=== PATIENT | male | born 1960 | race Caucasian/White ===

== ENCOUNTER 2020-04-28 10:08 | Outpatient (REF) | payer MEDICAID, SELFPAY | END 2020-04-28 10:09 | disposition home or self-care (01) | LOC: HO.BBR 10:08 | PROVIDERS: PCP Internal Medicine; Visit Provider Internal Medicine Hematology | DX: D45 Polycythemia vera (principal) | CPT/HCPCS: 36415; 85018; 99195 ==

== ENCOUNTER 2020-05-30 10:41 | Outpatient (REF) | payer MEDICAID, SELFPAY | END 2020-05-30 10:42 | disposition home or self-care (01) | LOC: HO.BBR 10:41 | PROVIDERS: Visit Provider Internal Medicine Hematology | DX: D45 Polycythemia vera (principal) | CPT/HCPCS: 85018 ==

== ENCOUNTER 2021-06-27 11:12 | Outpatient (REF) | payer MEDICAID, SELFPAY | END 2021-06-27 11:13 | disposition home or self-care (01) | LOC: HO.BBR 11:12 | PROVIDERS: Visit Provider Internal Medicine Hematology | DX: D45 Polycythemia vera (principal) | CPT/HCPCS: 85018; 99195 ==

== ENCOUNTER 2022-05-17 14:56 | Outpatient (REF) | payer MEDICAID, SELFPAY | END 2022-05-17 14:57 | disposition home or self-care (01) | LOC: HO.BBR 14:56 | PROVIDERS: Visit Provider Internal Medicine Hematology | DX: D45 Polycythemia vera (principal) | CPT/HCPCS: 85018; 99195 ==

== ENCOUNTER 2022-08-20 09:07 | Outpatient (REF) | payer MEDICAID, SELFPAY | END 2022-08-20 09:08 | disposition home or self-care (01) | LOC: HO.BBR 09:07 | PROVIDERS: PCP Internal Medicine; Visit Provider Internal Medicine Hematology | DX: D45 Polycythemia vera (principal) | CPT/HCPCS: 85014; 85018; 99195 ==

== ENCOUNTER 2022-09-20 09:59 | Outpatient (REF) | payer MEDICAID, SELFPAY | END 2022-09-20 10:00 | disposition home or self-care (01) | LOC: HO.BBR 09:59 | PROVIDERS: Visit Provider Internal Medicine Hematology | DX: D45 Polycythemia vera (principal) | CPT/HCPCS: 85014; 85018; 99195 ==

== ENCOUNTER 2022-10-19 10:02 | Outpatient (REF) | payer MEDICAID, SELFPAY | END 2022-10-19 10:03 | disposition home or self-care (01) | LOC: HO.BBR 10:02 | PROVIDERS: Visit Provider Internal Medicine Hematology | DX: D45 Polycythemia vera (principal) | CPT/HCPCS: 85018; 99195 ==

== ENCOUNTER 2022-11-19 09:46 | Outpatient (REF) | payer OTHER, SELFPAY | END 2022-11-19 09:47 | disposition home or self-care (01) | LOC: HO.BBR 09:46 | PROVIDERS: Visit Provider Internal Medicine Hematology | DX: D45 Polycythemia vera (principal) | CPT/HCPCS: 85014; 85018; 99195 ==

== ENCOUNTER 2022-12-27 09:48 | Outpatient (REF) | payer OTHER, SELFPAY | END 2022-12-27 09:49 | disposition home or self-care (01) | LOC: HO.BBR 09:48 | PROVIDERS: Visit Provider Internal Medicine Hematology | DX: D45 Polycythemia vera (principal) | CPT/HCPCS: 85014; 85018; 99195 ==

== ENCOUNTER 2023-01-28 10:00 | Outpatient (REF) | payer OTHER, MEDICAID, SELFPAY | END 2023-01-28 10:01 | disposition home or self-care (01) | LOC: HO.BBR 10:00 | PROVIDERS: Visit Provider Internal Medicine Hematology | DX: D45 Polycythemia vera (principal) | CPT/HCPCS: 85018 ==

== ENCOUNTER 2023-03-04 10:06 | Outpatient (REF) | payer OTHER, MEDICAID, SELFPAY | END 2023-03-04 10:07 | disposition home or self-care (01) | LOC: HO.BBR 10:06 | PROVIDERS: Visit Provider Internal Medicine Hematology | DX: D45 Polycythemia vera (principal) | CPT/HCPCS: 85014; 85018; 99195 ==

== ENCOUNTER 2023-04-09 09:57 | Outpatient (REF) | payer OTHER, MEDICAID, SELFPAY | END 2023-04-09 09:58 | disposition home or self-care (01) | LOC: HO.BBR 09:57 | PROVIDERS: Visit Provider Internal Medicine Hematology | DX: D45 Polycythemia vera (principal) | CPT/HCPCS: 85014; 85018; 99195 ==

== ENCOUNTER 2023-06-13 13:53 | Outpatient (REF) | payer OTHER, SELFPAY | END 2023-06-13 13:54 | disposition home or self-care (01) | LOC: HO.BBR 13:53 | PROVIDERS: PCP Internal Medicine; Visit Provider Internal Medicine Hematology | DX: D45 Polycythemia vera (principal) | CPT/HCPCS: 85018; 99195 ==

== ENCOUNTER 2023-08-27 08:58 | Outpatient (REF) | payer OTHER, SELFPAY | END 2023-08-27 08:59 | disposition home or self-care (01) | LOC: HO.BBR 08:58 | PROVIDERS: PCP Internal Medicine; Visit Provider Internal Medicine Hematology | DX: D45 Polycythemia vera (principal) | CPT/HCPCS: 85014; 85018; 99195 ==

== ENCOUNTER 2023-08-30 14:23 | Emergency (ER) | payer OTHER, SELFPAY ==
--- NOTE | ~2023-08-30 | CT_ITS ---
EXAMINATION: CT ABDOMEN AND PELVIS WITHOUT CONTRAST CLINICAL INFORMATION: History small bowel resection. Abdominal pain. COMPARISON: None available. TECHNIQUE: Multidetector volumetric imaging was performed from the superior aspect of the liver through the pubic symphysis. Sagittal and coronal reformatted images were obtained on the technologist's workstation. This CT examination was performed using dose optimization techniques as appropriate, variously including the following: *Automated exposure control *Adjustment of mA and/or kV according to patient size (this includes techniques or standardized protocols for targeted exams where dose is matched to indication/reason for exam; i.e. extremities or head) *Use of iterative reconstruction technique DLP: 254 mGy-cm FINDINGS: LUNG BASES: Cystic changes at the lung bases. Nonspecific distal esophageal wall thickening. LIVER, GALLBLADDER, AND BILIARY TREE: The noncontrast liver is normal in size and contour. No biliary ductal dilatation is present. The gallbladder is unremarkable with no evidence of radiopaque gallstones, gallbladder wall thickening, or obvious pericholecystic inflammatory changes. PANCREAS: Unremarkable. SPLEEN: Unremarkable. ADRENAL GLANDS: Unremarkable. KIDNEYS AND URETERS: The kidneys are normal in size, shape, and attenuation. Bilateral 2 mm nonobstructing renal calculi. No hydronephrosis. No perinephric stranding. BLADDER: Underdistended. GASTROINTESTINAL TRACT: Gastric distention. Proximal small bowel wall thickening. No small bowel obstruction. Moderate retained stool in the colon. Appendix is within normal limits. Surgical anastomosis in the sigmoid colon. ABDOMINAL WALL: No significant hernia is appreciated. LYMPH NODES: No bulky lymphadenopathy. VASCULAR: 1.2 x 1.0 cm partially calcified left renal artery aneurysm. No abdominal aortic aneurysm. Marked atherosclerotic vascular calcification. PELVIC VISCERA: Enlarged prostate gland. OSSEOUS STRUCTURES: No destructive bone lesions. CT/CT abdomen pelvis wo IV con IMPRESSION: Proximal small bowel wall thickening. No small bowel obstruction. This may represent enteritis. Infectious and inflammatory etiologies should be considered. 1.2 x 1.0 cm partially calcified left renal artery aneurysm. Bilateral 2 mm nonobstructing renal calculi. No hydronephrosis.
[2023-08-30 14:34] VITALS: BP 152/85; PULSE 52; RESP 24; TEMP 36.6; BMI 17.2
--- NOTE | 2023-08-30 14:35 | ED.GENADULT ---
HPI - General Adult General Chief complaint: Abdominal Pain Stated complaint: nausea/ dehydration Time Seen by Provider: 08/30/23 14:58 Source: patient Mode of arrival: ambulatory Limitations: no limitations History of Present Illness HPI narrative: Patient comes in the emergency room complaining of nausea vomiting and diffuse abdominal discomfort for 24 hours. Patient states that he has history of IBS, has been complaining of constipation last few days. Patient denies diarrhea. Patient denies URI or UTI symptoms. Related Data Previous Rx's Medication Instructions Recorded levofloxacin 500 mg tablet 500 mg PO DAILY #9 tabs 08/30/23 metronidazole 500 mg tablet 500 mg PO BID #19 tabs 08/30/23 ondansetron HCl 4 mg tablet 4 mg PO Q6H PRN nausea and 08/30/23 vomiting #14 tabs Allergies Allergy/AdvReac Type Severity Reaction Status Date / Time latex Allergy Rash Verified 08/30/23 15:09 Review of Systems Review of Systems: Constitutional : No Weight loss, No Fever, No Chills, No Night Sweats, No Fatigue, No Malaise ENT/Mouth : No Hearing loss, No Ear Pain, No Nasal Congestion, No Sinus Pain, No Hoarseness, No sore throat, No Rhinorrhea, No Swallowing Difficulty Eyes: No Eye Pain, No Swelling, No Redness, No Foreign Body, No Discharge, No Vision Changes Cardiovascular : No Chest Pain, No SOB, No Dyspnea on Exertion, No Orthopnea, No Edema, No Palpitations Respiratory : No Cough, No Sputum, No Wheezing, No Smoke Exposure, No Dyspnea Gastrointestinal : Complaining of nausea vomiting, no diarrhea, constipation, abdominal discomfort in all quadrants Genitourinary : no irregular bleeding, No Dysuria, No Urinary Frequency, No Hematuria, No Urinary Incontinence, No Urgency, No Flank Pain, No Urinary Flow Changes, No Hesitancy Musculoskeletal : No joint pain, No Myalgias, No Joint Swelling Skin : No Skin Lesions, No rash Neuro : No Weakness, No Numbness, No Paresthesias, No Loss of Consciousness, No Dizziness, No Headache Psych : No Anxiety/Panic, No Depression, No SI/HI/AH/VH, No Social Issues, Heme/Lymph: No Bruising, No Bleeding,No Lymphadenopathy Endocrine : No Polyuria, No Polydipsia, No Temperature Intolerance [facility] Past Medical History Medical History (Updated 08/30/23 @ 17:40 by Ayesha Daniel MD) Diverticulitis SVT (supraventricular tachycardia) CVA (cerebral vascular accident) Alcohol abuse IBS (irritable bowel syndrome) Atrial fibrillation Polycythemia Surgical History (Updated 08/30/23 @ 15:20 by Ayesha Daniel MD) History of resection of small bowel Social History Social History Use of substances other than those prescribed or required for medical reasons: No Advance Directives: Yes Advance Directives Information Provided: Yes Advance Directives on File: No Physical Exam ED Vital Signs: Vital Signs - 24 hr 08/30/23 14:34 08/30/23 15:06 Temperature 97.8 F 97.8 F Pulse Rate 52 82 Respiratory Rate 24 H 34 H Blood Pressure 152/85 H 181/96 H Pulse Oximetry 100 Oxygen Delivery Method Room Air Room Air BMI result Body Mass Index 17.2 Const Other: Appearance: Alert. Oriented X3. Anxious Eyes: Pupils equal, round and reactive to light. ENT: Pharynx normal. Neck: Normal inspection. Neck supple. No lymph nodes noted. No crepitus CVS: Normal heart rate and rhythm. Pulses normal. Normal S1 and S2 Respiratory: No respiratory distress. Breath sounds normal. No Wheezing. No rales Abdomen: Soft and nontender. No rigidity. No distention. Skin: Skin warm and dry. Normal skin color. Normal skin turgor. Extremities: No lower extremity edema. No Lacerations. No Rash Neuro: Oriented X 3. No motor deficit. No sensory deficit. Moving all extremities. No slurred speech. CN 2 through 12 grossly intact Psych: calm, cooperative, anxious Course Course Course Narrative: RME performed by Riya Narayan PA-C. Patient is a 63 year old assigned male at presenting to the emergency department with nausea, vomiting, and concern for dehydration. Hx of IBS. 72 hours of vomiting. Detailed physical exam and review of systems are deferred to the community outreach manager. Labs and swabs ordered. Patient placed back in the waiting room pending room availability and results. Medications Administered Discontinued Medications Generic Name Dose Route Start Last Admin Trade Name Freq PRN Reason Stop Dose Admin Sodium Chloride 1,000 mls @ 999 mls/hr 08/30/23 15:15 08/30/23 17:23 Ns IVCONT 08/30/23 16:15 Infused .Q1H1M ONE Infusion Lorazepam 1 mg 08/30/23 15:23 08/30/23 15:42 Lorazepam 1 Mg Tablet PO 08/30/23 15:24 1 mg ONCE ONE Administration Morphine Sulfate 4 mg 08/30/23 15:15 08/30/23 15:42 Morphine Sulfate 4 Mg/Ml Cartridge IVPUSH 08/30/23 15:16 4 mg ONCE ONE Administration Protocol Medical Decision Making Medical Decision Making [facility] Narrative: -my interpretation of labs, patient has leukocytosis, likely reactive. Chemistry shows mild hyponatremia, mild LUKE, likely secondary to dehydration, patient being hydrated with IV fluids. LFTs within normal limits, serology negative for COVID -patient very anxious on arrival, given p.o. Ativan -patient did not provide a urine sample. However, patient will be getting antibiotics that would cover for UTI -after 2 L of IV fluids, patient states that he feels much better Differential Diagnosis Differential Diagnoses: The differential diagnosis associated with the presentation includes (Colitis, SBO, pancreatitis, cholecystitis) Admission/Observation Consideration of admission/observation: Escalation of care including admission/observation considered (Urine patient's presentation and initial labs, admission was considered) Lab Data [facility] Lab Attestation statement: I reviewed the patient's lab results. 08/30/23 14:45 08/30/23 14:45 Labs: Lab Results 08/30/23 Range/Units 14:45 WBC 14.8 H (4.8-10.8) X10*3/uL RBC 5.65 (4.60-5.80) X10*6/uL Hgb 16.3 (14.0-18.0) g/dl Hct 49.5 (42.0-52.0) % MCV 87.6 (80.0-98.0) fL MCH 28.8 (27.0-33.0) pg MCHC 32.9 (31.0-36.0) g/dl RDW 16.5 H (11.0-16.0) % Plt Count 387 (160-400) X10*3/uL MPV 10.0 (9.4-12.4) fL Immature Gran % (Auto) 0.6 H (0.0-0.4) % Neut % (Auto) 85.7 H (45-73) % Lymph % (Auto) 5.8 L (20-40) % [place] % (Auto) 7.5 (2-11) % Eos % (Auto) 0.0 (0-4) % Baso % (Auto) 0.4 (0-2) % Lymph # (Auto) 0.9 L (1.2-4.9) X10*3/uL [place] # (Auto) 1.1 (0.1-1.2) X10*3/uL Eos # (Auto) 0.0 (0.0-0.4) X10*3/uL Baso # (Auto) 0.1 (0.0-0.2) X10*3/uL Abs Immat Gran (auto) 0.09 H (0.00-0.03) X10*3/uL Absolute Neuts (auto) 12.6 H (2.0-8.3) x10*3/uL Absolute Nucleated RBC 0.000 (0.0-0.012) X10*3/uL Nucleated RBC % (auto) 0.0 (0.0-0.2) /100WBC Sodium 134 L (135-145) mmol/L Potassium 4.5 (3.3-5.1) mmol/L Chloride 95 L (96-108) mmol/L Carbon Dioxide 25 (22-29) mmol/L Anion Gap 19 (12-20) BUN 20 H (9-16) mg/dL Creatinine 1.48 H (0.5-1.4) mg/dL Estim Creat Clear Calc 36.0 Estimated GFR 48 Random Glucose 139 H (60-115) mg/dL Calcium 10.8 H (8.4-10.2) mg/dL Magnesium 2.3 (1.6-2.6) mg/dL Total Bilirubin 0.7 (0.0-1.0) mg/dL AST 25 (5-37) U/L ALT 16 (0-40) U/L Alkaline Phosphatase 82 (39-117) U/L Total Protein 8.7 H (6.5-8.0) g/dL Albumin 4.6 (3.5-5.0) g/dL COVID-19 ([facility]) Negative (Negative) COVID-19 Clin Com See Note Independent Interpretation I performed an independent interpretation of an: CT Scan Radiology Impression Discussion of test interpretation with radiology: I have reviewed the radiologist's reading. Radiologist Impression: FINDINGS: LUNG BASES: Cystic changes at the lung bases. Nonspecific distal esophageal wall thickening. LIVER, GALLBLADDER, AND BILIARY TREE: The noncontrast liver is normal in size and contour. No biliary ductal dilatation is present. The gallbladder is unremarkable with no evidence of radiopaque gallstones, gallbladder wall thickening, or obvious pericholecystic inflammatory changes. PANCREAS: Unremarkable. SPLEEN: Unremarkable. ADRENAL GLANDS: Unremarkable. KIDNEYS AND URETERS: The kidneys are normal in size, shape, and attenuation. Bilateral 2 mm nonobstructing renal calculi. No hydronephrosis. No perinephric stranding. BLADDER: Underdistended. GASTROINTESTINAL TRACT: Gastric distention. Proximal small bowel wall thickening. No small bowel obstruction. Moderate retained stool in the colon. Appendix is within normal limits. Surgical anastomosis in the sigmoid colon. ABDOMINAL WALL: No significant hernia is appreciated. LYMPH NODES: No bulky lymphadenopathy. VASCULAR: 1.2 x 1.0 cm partially calcified left renal artery aneurysm. No abdominal aortic aneurysm. Marked atherosclerotic vascular calcification. PELVIC VISCERA: Enlarged prostate gland. OSSEOUS STRUCTURES: No destructive bone lesions. CT/CT abdomen pelvis wo IV con IMPRESSION: Proximal small bowel wall thickening. No small bowel obstruction. This may represent enteritis. Infectious and inflammatory etiologies should be considered. 1.2 x 1.0 cm partially calcified left renal artery aneurysm. Bilateral 2 mm nonobstructing renal calculi. No hydronephrosis. Independent Historian Clinical information obtained from an independent historian. History obtained from or confirmed by: Spouse Critical Care Time Critical Care Time Critical Care Time: Yes Total Critical Care Time: 60 Attestation: I have personally provided critical care time. Time includes review of lab data, radiology results, discussion with consultants, and monitoring for potential decompensation. Intervention performed as documented. Discharge Plan Discharge Clinical Impression: Colitis, LUKE (acute kidney injury) Patient Disposition: Home, Self-Care Instructions: Colitis (ED), Full Liquid Diet (DC) Additional Instructions: Please follow-up with your primary care physician tomorrow. If you have any worsening or new symptoms, please return to the emergency room or call 911 Prescriptions: New levofloxacin 500 mg tablet 500 mg PO DAILY Qty: 9 0RF metronidazole 500 mg tablet 500 mg PO BID Qty: 19 0RF ondansetron HCl 4 mg tablet 4 mg PO Q6H PRN (Reason: nausea and vomiting) Qty: 14 0RF Stand Alone Forms: Work/School Release
[2023-08-30 14:49] LABS: MANUAL DIFF FLAG NO
[2023-08-30 14:50] LABS: Basophils Absolute Auto 0.1 X10*3/uL (0.0-0.2); Basophils Percent Auto 0.4 % (0-2); Hematocrit 49.5 % (42.0-52.0); Hemoglobin 16.3 g/dl (14.0-18.0); Imm Gran Abs Auto 0.09 X10*3/uL (0.00-0.03); Imm Gran Pct Auto 0.6 % (0.0-0.4); Lymphocytes Absolute Auto 0.9 X10*3/uL (1.2-4.9); Lymphocytes Percent Auto 5.8 % (20-40); Mean Corpuscular HGB Conc 32.9 g/dl (31.0-36.0); Mean Corpuscular Hemoglobin 28.8 pg (27.0-33.0); Mean Corpuscular Volume 87.6 fL (80.0-98.0); Monocytes Absolute Auto 1.1 X10*3/uL (0.1-1.2); Monocytes Percent Auto 7.5 % (2-11); Neutrophils Absolute Auto 12.6 x10*3/uL (2.0-8.3); Neutrophils Percent Auto 85.7 % (45-73); Platelet Count 387 X10*3/uL (160-400); Red Blood Count 5.65 X10*6/uL (4.60-5.80); Red Cell Distribution Width 16.5 % (11.0-16.0); White Blood Count 14.8 X10*3/uL (4.8-10.8)
[2023-08-30 15:05] LABS: Alanine Aminotransferase 16 U/L (0-40); Albumin Level 4.6 g/dL (3.5-5.0); Alkaline Phosphatase 82 U/L (39-117); Anion Gap 19 (12-20); Aspartate Amino Transferase 25 U/L (5-37); Bilirubin Total 0.7 mg/dL (0.0-1.0); Blood Urea Nitrogen 20 mg/dL (9-16); Calcium 10.8 mg/dL (8.4-10.2); Carbon Dioxide 25 mmol/L (22-29); Chloride 95 mmol/L (96-108); Estimated Glomerular Filt Rate 48; Glucose Random 139 mg/dL (60-115); Magnesium 2.3 mg/dL (1.6-2.6); Potassium 4.5 mmol/L (3.3-5.1); Sodium 134 mmol/L (135-145); Total Protein 8.7 g/dL (6.5-8.0)
[2023-08-30 15:06] VITALS: BP 181/96; PULSE 82; RESP 34; TEMP 36.6; O2SAT 100
--- NOTE | 2023-08-30 15:11 | PC.NURSE ---
md hare at bedside aware of vs- rr 30s, bp 181/96. reports abd pain and hx IBS. PIV placed. talking full sentences. +CMS. afebrile
[2023-08-30 15:33] LABS: COVID-19 Test Negative (Negative); IDNOW Serial# 9DB6401D
[2023-08-30] MEDS: LORazepam 1 MG TABLET PO (15:42)
[2023-08-30] MEDS: Morphine Sulfate 4 MG/ML CARTRIDGE IVPUSH (15:42)
[2023-08-30] MEDS: 0.9 % Sodium Chloride 1,000 ML 999 ML IVCONT ×2 (15:46→18:11)
--- NOTE | 2023-08-30 17:24 | PC.NURSE ---
fluids and meds given as documented. vs at baseline. pt resting quietly at this time, his is at his bedside.
[2023-08-30] MEDS: metroNIDAZOLE 500 MG TABLET PO (18:10)
[2023-08-30] MEDS: levoFLOXacin 500 MG TABLET PO (18:10)
[2023-08-30 19:24] VITALS: BP 123/73; PULSE 78; RESP 16; TEMP 36.4; O2SAT 98
== END 2023-08-30 19:25 | disposition home or self-care (01) ==
PROVIDERS: Physician Assistant Medical; Emergency Provider Emergency Medicine; PCP Internal Medicine
DX: K52.9 Noninfective gastroenteritis and colitis, unspecified (principal); R11.2 Nausea with vomiting, unspecified; N17.9 Acute kidney failure, unspecified; E86.0 Dehydration; Z11.52 Encounter for screening for COVID-19; Z79.899 Other long term (current) drug therapy
CPT/HCPCS: 74176; 80053; 83735; 85025; 87635; 96361; 96374; 99284; 99285; J2270

== ENCOUNTER 2023-09-30 12:08 | Outpatient (REF) | payer OTHER, SELFPAY | END 2023-09-30 12:09 | disposition home or self-care (01) | LOC: HO.BBR 12:08 | PROVIDERS: PCP Internal Medicine; Visit Provider Internal Medicine Hematology | DX: D45 Polycythemia vera (principal) | CPT/HCPCS: 85014; 85018; 99195 ==

== ENCOUNTER 2024-02-05 14:04 | Outpatient (REF) | payer OTHER, SELFPAY | END 2024-02-05 14:05 | disposition home or self-care (01) | LOC: HO.BBR 14:04 | PROVIDERS: Visit Provider Internal Medicine Hematology | DX: D45 Polycythemia vera (principal) | CPT/HCPCS: 85014; 85018; 99195 ==